=== PATIENT | male | born 1950 | race Caucasian/White ===

== ENCOUNTER 2019-06-14 10:50 | Inpatient (IN) | payer OTHER ==
[~2019-06-14] VITALS: Ht 182.9 cm; Wt 92.0 kg
[2019-06-14 10:51] VITALS: BP 137/83
[2019-06-14] MEDS ORDERED: ALLOPURINOL 10100 M3 PO (10:57)
[2019-06-14] MEDS ORDERED: PLAVIX 75 MG TA75 MG PO (10:58)
[2019-06-14] MEDS ORDERED: ASA81BEC PO (10:58)
[2019-06-14] MEDS ORDERED: LISINOPRIL2.5 MG PO (10:58)
[2019-06-14] MEDS ORDERED: FUROSEMIDE 20 M20 MG PO (10:58)
[2019-06-14] MEDS ORDERED: CARVEDILOL12.5 MG PO (10:59)
[2019-06-14] MEDS ORDERED: VITAMIN D32000 UNIT PO (10:59)
[2019-06-14] MEDS ORDERED: SERTRALINE HCL100 MG PO (10:59)
[2019-06-14] MEDS ORDERED: FOLIC ACID1 MG PO (11:00)
[2019-06-14] MEDS ORDERED: VITAMIN B-1100 M2 PO (11:00)
[2019-06-14] MEDS ORDERED: ACETAMINOPHEN500 M1 PO (11:01)
--- NOTE | 2019-06-14 11:01 | NUR ---
[facility]ED [facility] TO REPORT WHAT HAPPENEND WITH THE PT THAT LED TO EMS BEING CALLED. LATONIA STATED THAT THE PT WENT TO THE RESTROOM AND THEN WAS TRANSFERRED BACK TO HIS BED IN WHICH THE PT STATED HE WENT IN THE BED. THE PT BECAME "UNRESPONSIVE" ACCORDING TO LATONIA AND HIS HEART RATE WAS BETWEEN 32-49 BEATS PER MINUTE. LATONIA STATED THAT THE DON AT [facility] THINKS IT WAS VASOVAGAL DUE TO THE PT BEING ON THE TOILET AND TRYING TO HAVE A BM. LATONIA STATED THAT THE PT IS A DIABETIC AND IS LEGALLY BLIND. LATONIA WAS ADVISED THAT WE'LL DO LAB TESTS AND EVALUATE THE PT. SHE EXPRESSED THANKS.
[2019-06-14] MEDS ORDERED: DIVALPROEX SOD500 M1 PO (11:02)
[2019-06-14] MEDS ORDERED: MELATONIN3 M1 PO (11:02)
[2019-06-14] MEDS ORDERED: LIPITOR40 MG PO (11:02)
[2019-06-14] MEDS ORDERED: FLOMAX0.4 MG PO (11:03)
[2019-06-14] MEDS ORDERED: OLANZAPINE5 M1 PO (11:03)
[2019-06-14] MEDS ORDERED: IBU600 MG PO (11:04)
[2019-06-14] MEDS ORDERED: LEVEMIR100 UNIT/1 SUBQ ×2 (11:05→11:06)
[2019-06-14] MEDS ORDERED: NOVOLOG100 UNIT/1 SUBQ (11:06)
[2019-06-14 11:23] LABS: ABSOLUTE NEUTROPHILS 5.8 thou/uL (1.4-8.2); BASOPHILS 0.5 % (0.0-2.0); EOSINOPHILS 2.3 % (0.0-3.0); HEMATOCRIT 34.8 % (42.0-52.0); HEMOGLOBIN 11.5 gm/dL (14.0-18.0); MCH 31.5 pg (26.0-34.0); MCHC 32.9 g/dL (28.0-37.0); MCV 95.7 fL (80.0-100.0); MONOCYTES 6.5 % (1.0-8.0); PLATELET COUNT 446 thou/uL (150-400); POLYS 65.7 % (36.0-66.0); RBC 3.64 mil/uL (4.50-6.00); RDW 16.1 % (10.5-14.5); WBC 8.8 thou/uL (4.0-11.0)
[2019-06-14 11:30] LABS: CALCIUM 9.5 mg/dL (8.5-10.1); CREATININE 2.1 mg/dL (0.7-1.3); POTASSIUM 4.9 mmol/L (3.5-5.1)
[2019-06-14 11:39] LABS: MAGNESIUM 1.8 mg/dL (1.8-2.4); TROPONIN-I 0.06 ng/mL (<0.06)
[2019-06-14 12:23] VITALS: BP 117/50
[2019-06-14 13:41] VITALS: BP 123/61
[2019-06-14 14:00] VITALS: BP 146/53
[2019-06-14] MEDS ORDERED: VITAMIN D22000 UNIT PO (15:45)
[2019-06-14 16:00] VITALS: BP 125/54
[2019-06-14 20:30] VITALS: BP 145/61
--- NOTE | 2019-06-14 20:43 | NUR ---
PT. ARRIVED AT FLOOR AROUND 1400; PT. ALERT; ABLE TO AMBULATE FROM STRETCHER TO BED WITH TWO PEOPLE INLETTER; ALERT TO SITUATION & PLACE; EDUCATED ABOUT FALL PREVENTIONS; ST. UNDERSTANDING; NEEDS TO BE REMAINED; CODE STATUS DNR; NO OUTSIDE ORDERS IN CHART; CALLED SNIF; PER REPORT PT. IS A FULL CODE; PHYSICIAN NOTIFIED; DPOA INFORMATION OBTAINED; MELYSSA RICHEY [phone]; PER REPORT PT. AMBULATES AT THE FACILITY ON WHEELCHAIR; NEED ASSISTANCE TO EAT DUE TO BLINDNESS; SMOKER; HX OF ALCOHOL ABUSE; ADMISSION PERFORMED; AFLUT; RAMIRO ON THE MONITOR; NO C/O PAIN; ASSESSMENT CHARGED; FOLLOWING POC; PASSED ON REPORT;
[2019-06-15] VITALS: BP 156/76
[2019-06-15 03:30] VITALS: BP 118/53
[2019-06-15 04:30] LABS: HEMATOCRIT 28.2 % (42.0-52.0); MCH 31.3 pg (26.0-34.0); MCHC 32.9 g/dL (28.0-37.0); MCV 94.9 fL (80.0-100.0); RBC 2.97 mil/uL (4.50-6.00); RDW 16.7 % (10.5-14.5); WBC 8.7 thou/uL (4.0-11.0)
[2019-06-15 04:40] LABS: CALCIUM 8.8 mg/dL (8.5-10.1); CREATININE 1.8 mg/dL (0.7-1.3); POTASSIUM 3.7 mmol/L (3.5-5.1)
[2019-06-15 04:42] LABS: HEMOGLOBIN 9.3 gm/dL (14.0-18.0)
--- NOTE | 2019-06-15 06:03 | NUR ---
ASSUMED PT CARE AT 1915. PT WAS RESTING IN ROOM. PT AWAKENED WITH NO C/O PAIN, CP, OR N/V/D. PT HAD DC'D IV PRIOR TO SHIFT CHANGE. NEW IV PLACED AND CHARTED. PT HAD NO CONCERNS OVERNIGHT. PT FREQUENTLY ROUNDED AND MONITORED THRU NIGHT.
[2019-06-15 07:30] VITALS: BP 123/62
--- NOTE | 2019-06-15 11:49 | 2DMMODE ---
[facility] [address] [place] [address] 2 D/M-MODE ECHOCARDIOGRAM Name: PETE RICHEY Room #: 215-P ADM IN M.R.#: [id number] Admission: 06/14/19 Attend Phys: Hermilo Chen MD Discharge: Date of : 48 Report #: [id number] THIS REPORT FOR: cc: FAM - Family physician unknown FAM - Family physician unknown Antonio Schilling MD ~ THIS REPORT FOR: //name// APPROVED REPORT Study performed: 06/15/2019 09:39:28 EXAM: Comprehensive 2D, Doppler, and color-flow Echocardiogram Patient Location: Bedside Room #: 215 Status: routine BSA: 2.08 HR: 52 bpm BP: 118/53 mmHg Rhythm: Bradycardia Other Information Study Quality: Adequate Risk Factors: Cardiac Risk Factors: HTN, Hyperlipidemia, DM, Smoking Indications COPD Bradycardia Syncope Elevated Troponin 2D Dimensions IVSd: 9.46 (7-11mm) LVOT Diam: 20.00 (18-24mm) LVDd: 56.60 mm PWd: 9.57 (7-11mm) Ascending Ao: 31.22 (22-36mm) LVDs: 47.03 (25-40mm) Aortic Root: 35.16 mm LV Single Plane 4CH: 30.68 % LV Single Plane 2CH: 40.44 % Biplane EF: 35.6 % [facility] [address] [place] [address] 2 D/M-MODE ECHOCARDIOGRAM Name: PETE RICHEY Room #: 215-P ADM IN M.R.#: [id number] Admission: 06/14/19 Attend Phys: Hermilo Chen MD Discharge: Date of : 48 Report #: [id number] Volumes Left Atrial Volume (Systole) Single Plane 4CH: 48.44 mL Single Plane 2CH: 50.42 mL LA ESV Index: 29.00 mL/m2 Aortic Valve AoV Peak Bashir.: 1.16 m/s AO Peak Gr.: 5.42 mmHg LVOT Max P.97 mmHg LVOT Max V: 0.86 m/s ERYN Vmax: 2.39 cm2 Mitral Valve E/A Ratio: 1.0 MV Decel. Time: 372.75 ms MV E Max Bashir.: 0.65 m/s MV A Bashir.: 0.66 m/s MV PHT: 108.10 ms IVRT: 73.82 ms TDI E/Lateral E': 10.83 E/Medial E': 13.00 Medial E' Bashir.: 0.05 m/s Lateral E' Bashir.: 0.06 m/s Pulmonary Valve PV Peak Bashir.: 1.08 m/s PV Peak Gr.: 4.67 mmHg CO End Vmax: 0.87 m/s Pulmonary Vein P Vein S: 0.54 m/s P Vein A: 0.21 m/s P Vein D: 0.40 m/s P Vein A Dur.: 129.2 msec P Vein S/D Ratio: 1.35 Tricuspid Valve TR Peak Bashir.: 3.35 m/s RAP Estimate: 7.00 mmHg TR Peak Gr.: 44.97 mmHg PA Pressure: 52.00 mmHg Left Ventricle Left ventricle is at the upper limits of normal. Septal and apical hypokinesis. There is normal left ventricular wall thickness. Left ventricular systolic function is moderately decreased. LVEF is 35-40%. Moderate diastolic dysfunction is present (pseudonormal filling). Right Ventricle [facility] [address] [place] [address] 2 D/M-MODE ECHOCARDIOGRAM Name: PETE RICHEY Room #: 215-P ADM IN M.R.#: [id number] Admission: 06/14/19 Attend Phys: Hermilo Chen MD Discharge: Date of : 48 Report #: [id number] The right ventricle is normal size. The right ventricular systolic function is normal. Atria The left atrium size is normal. The right atrium size is normal. Aortic Valve The aortic valve is normal in structure. Mild aortic regurgitation. There is no aortic valvular stenosis. Mitral Valve The mitral valve is normal in structure. Mild to moderate mitral regurgitation. No evidence of mitral valve stenosis. Tricuspid Valve The tricuspid valve is normal in structure. Mild tricuspid regurgitation. Pulmonary artery pressure is 52 mmHg. Moderate pulmonary hypertension. Pulmonic Valve The pulmonary valve is normal in structure. Mild pulmonic regurgitation. Great Vessels The aortic root is normal in size. The ascending aorta is normal in size. IVC is normal in size and collapses >50% with inspiration. Pericardium There is no pericardial effusion. <Conclusion> Left ventricle is at the upper limits of normal. LVEF is 35-40%. Septal and apical hypokinesis. The aortic valve is normal in structure. Mild aortic regurgitation. The mitral valve is normal in structure. Mild to moderate mitral regurgitation. The tricuspid valve is normal in structure. Mild tricuspid regurgitation. Pulmonary artery pressure is 52 mmHg. Moderate pulmonary hypertension. The pulmonary valve is normal in structure. [facility] [address] [place] [address] 2 D/M-MODE ECHOCARDIOGRAM Name: PETE RICHEY Room #: 215-P [facility]#: [id number] Admission: 06/14/19 Attend Phys: Hermilo Chen MD Discharge: Date of : 48 Report #: [id number] Mild pulmonic regurgitation. There is no pericardial effusion. <ELECTRONICALLY SIGNED> By: Antonio Schilling MD 06/15/19 1148 1148 1148 Antonio Schilling MD /INF
[2019-06-15 12:00] VITALS: BP 126/61
--- NOTE | 2019-06-15 15:37 | NUR ---
ASSESSMENT CHARTED. PT ALERT AND ORIENTED. SB ON TELE. DENIED HAVING PAIN OR DISCOMFORT. CHECKED FREQUENTLY AND NEEDS MET. WILL CONTINUE TO MONITOR.
[2019-06-15 16:00] VITALS: BP 116/53
--- NOTE | 2019-06-15 18:08 | NUR ---
Met with patient who admits from [facility] for bradycardia. Patient is blind he is alert and orientated. Patient agreeable for return to [facility]. He reports his brother DPRENETTA and agreeable for caset to call brother. Called and no answer did not leave a message. Plan return to [facility] once stable.
[2019-06-15 20:15] VITALS: BP 143/55
[2019-06-16 04:25] VITALS: BP 146/58
[2019-06-16 04:54] LABS: HEMATOCRIT 28.5 % (42.0-52.0); HEMOGLOBIN 9.4 gm/dL (14.0-18.0); MCH 31.3 pg (26.0-34.0); MCV 94.9 fL (80.0-100.0); RDW 16.3 % (10.5-14.5); WBC 6.4 thou/uL (4.0-11.0)
[2019-06-16 05:05] LABS: CALCIUM 8.8 mg/dL (8.5-10.1); CREATININE 1.4 mg/dL (0.7-1.3); POTASSIUM 4.6 mmol/L (3.5-5.1)
--- NOTE | 2019-06-16 07:43 | NUR ---
PT CARE ASSUMED AROUND 1914. PT RESTING IN BED WITH NO C/O PAIN. PT RESTED THRU NIGHT WITH MINIMAL INTERRUPTIONS. WILL CONTINUE TO MONITOR PT PER PLAN OF CARE.
[2019-06-16 08:00] VITALS: BP 137/60
[2019-06-16 12:00] VITALS: BP 123/52
--- NOTE | 2019-06-16 13:51 | NUR ---
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 [facility] confirmed readmission with their DON. DC summary and instructions faxed. Nursing to call report. Chart copy to be sent with the pt. Pt notified at bedside. He is agreeable and wishes for cm to call his brother. Message left for brother Gonzalo confirming the dc and w/c van ride at 3pm. [employer] is transporting the pt and was vouchered by cm to facilitate dc.
--- NOTE | 2019-06-16 15:40 | NUR ---
ASSESSMENT CHARTED. PT ALERT AND ORIENTED WITH FORGETFULNESS. SEEN BY DR. DRUMMOND. ORDERS GIVEN TO DISCHARGE PT TO SNF. PT AND FAMILY NOTIFIED.
--- NOTE | 2019-06-23 11:21 | EKG ---
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: ALBERTA : 1950 Requested By: Miguel Angel Haines Order Number: [id number] MD: Miguel Tariq Measurements Intervals [place] Rate: 48 P: 228 SC: 125 QRS: -58 QRSD: 126 T: 124 QT: 491 QTc: 439 Interpretive Statements Sinus or ectopic atrial bradycardia IVCD, consider atypical RBBB Anterior infarct, age indeterminate Lateral leads are also involved No previous ECG available for comparison Electronically Signed On 06-15-2019 8:39:45 TOWEL ROLLING MACHINE OPERATOR by Miguel Tariq [email or web address] <ELECTRONICALLY SIGNED> By: Miguel Tariq MD 06/15/19 0839 1210 121 Miguel Tariq MD /EPI
--- NOTE | 2019-06-23 11:21 | EKG ---
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: Jerilyn JAVIER : 1950 Requested By: Shoshana Shi Order Number: [id number] MD: Miguel Tariq Measurements Intervals [place] Rate: 54 P: 62 SC: 97 QRS: -49 QRSD: 126 T: 120 QT: 490 QTc: 465 Interpretive Statements Sinus rhythm Short SC interval IVCD, consider atypical RBBB Probable anterior infarct, age indeterminate Lateral leads are also involved No previous ECG available for comparison Electronically Signed On 06-15-2019 8:43:12 DEMAND PLANNING ANALYST by Miguel Tariq [email or web address] <ELECTRONICALLY SIGNED> By: Miguel Tariq MD 06/15/19 0843 3 3 Miguel Tariq MD /EPI
--- NOTE | 2019-06-23 11:21 | EKG ---
[facility] [place] [address] ELECTROCARDIOGRAM REPORT Name: PETE RICHEY Room #: 215- DIS IN M.R.#: [id number] Admission: 06/14/19 Attend Phys: Hermilo Chen MD Discharge: 06/16/19 Date of : 48 Report #: [id number] THIS REPORT FOR: cc: FAM - Family physician unknown FAM - Family physician unknown Miguel Tariq MD ~ THIS REPORT FOR: //name// [facility] ED Test Date: 2019-06-14 Test Time: 10:53:02 Pat Name: PETE RICHEY Department: Room: [facility] Gender: M Utility Supervisor Boat [employer] Plant: NASIR : 1950 Requested By: Miguel Angel Haines Order Number: [id number] MD: Miguel Tariq Measurements Intervals [place] Rate: 51 P: OR: QRS: -57 QRSD: 129 T: 119 QT: 490 QTc: 452 Interpretive Statements Atrial fibrillation IVCD, consider atypical RBBB Anteroseptal infarct, age indeterminate Lateral leads are also involved No previous ECG available for comparison Electronically Signed On 06-15-2019 8:37:37 WOOLEN MILL UTILITY WORKER by Miguel Tariq [email or web address] <ELECTRONICALLY SIGNED> By: Miguel Tariq MD 06/15/19 0837 1053 1053 Miguel Tariq MD /EPI
== END 2019-06-16 15:48 | DRG 308 ==
LOC: ER 10:50 → EROBS 12:37 → 2N 12:37
PROVIDERS: Emergency Medicine; Nurse Practitioner; ADMIT Hospitalist
DX: I47.1 Supraventricular tachycardia (principal); N17.0 Acute kidney failure with tubular necrosis; E78.5 Hyperlipidemia, unspecified; N40.0 Benign prostatic hyperplasia without lower urinary tract symptoms; I12.9 Hypertensive chronic kidney disease with stage 1 through stage 4 chronic kidney disease, or unspecified chronic kidney disease; N18.3 Chronic kidney disease, stage 3 (moderate); R00.1 Bradycardia, unspecified; E11.649 Type 2 diabetes mellitus with hypoglycemia without coma; D64.9 Anemia, unspecified; E11.22 Type 2 diabetes mellitus with diabetic chronic kidney disease; F17.210 Nicotine dependence, cigarettes, uncomplicated; J44.9 Chronic obstructive pulmonary disease, unspecified; F41.9 Anxiety disorder, unspecified; E86.0 Dehydration; I25.10 Atherosclerotic heart disease of native coronary artery without angina pectoris; I25.2 Old myocardial infarction; Z86.73 Personal history of transient ischemic attack (TIA), and cerebral infarction without residual deficits
CPT/HCPCS: 10081

== ENCOUNTER 2020-06-11 08:23 | Emergency (ER) | payer OTHER ==
[~2020-06-11] VITALS: Ht 180.3 cm; Wt 88.5 kg
[~2020-06-11 08:23] MED LIST: ACETAMINOPHEN325 M1 PO; ACETAMINOPHEN500 M1 PO; ALLOPURINOL 10100 M1 PO; ALLOPURINOL 10100 M3 PO; ASA81BEC PO; CARVEDILOL12.5 MG PO; DEPAKOTE ER500 M1 PO; DIVALPROEX SOD500 M1 PO; FLOMAX0.4 MG PO; FOLIC ACID1 MG PO; FUROSEMIDE 20 M20 MG PO; IBU600 MG PO; IBUPROFEN 600600 M1 PO; IPRAT-ALBUT 0.5-3 ML INH; LASIX 40 MG TAB40 MG PO; LEVAQUIN 500 M500 M1 PO; LEVEMIR FL100 UNIT/2 SUBQ; LEVEMIR100 UNIT/1 SUBQ; LEVEMIR100 UNIT/2 SUBQ; LIPITOR40 MG PO; LISINOPRIL2.5 M1 PO; LISINOPRIL2.5 MG PO; MELATONIN3 M1 PO; MELATONIN5 M1 PO; MIRALAX17 GM PO; MUCINEX600 MG PO; NOVOLOG FL100 UNIT/M SUBQ; NOVOLOG100 UNIT/1 SUBQ; OLANZAPINE2.5 MG PO; OLANZAPINE5 M1 PO; PANTOPRAZOLE SO40 M1 PO; PLAVIX 75 MG TA75 MG PO; PULMICORT0.5 MG/21 INH; SENNA PLUS TAB1 EACH PO; SERTRALINE HCL100 MG PO; TYLENOL325 MG PO; VITAMIN B-1100 M2 PO; VITAMIN B-121000 MC2 PO; VITAMIN D22000 UNIT PO; VITAMIN D32000 UNIT PO
== END 2020-06-11 16:51 ==
LOC: ER 08:23
DX: I46.9 Cardiac arrest, cause unspecified (principal); I12.9 Hypertensive chronic kidney disease with stage 1 through stage 4 chronic kidney disease, or unspecified chronic kidney disease; N18.2 Chronic kidney disease, stage 2 (mild); M10.9 Gout, unspecified; J44.9 Chronic obstructive pulmonary disease, unspecified; Z79.899 Other long term (current) drug therapy; Z86.73 Personal history of transient ischemic attack (TIA), and cerebral infarction without residual deficits; Z79.4 Long term (current) use of insulin; Z79.82 Long term (current) use of aspirin